=== PATIENT | male | born 2005 | race Two or more races ===

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

== ENCOUNTER 2024-06-10 08:16 | Emergency (ER) | payer OTHER, SELFPAY ==
--- NOTE | ~2024-06-10 | XR_ITS ---
EXAMINATION: XR WRIST 1-2 VIEWS RIGHT HISTORY: fall COMPARISON: There are no prior studies available for comparison. FINDINGS: Four views of the right wrist including a scaphoid view are submitted. Osseous mineralization is normal. There is no fracture or dislocation. The joint spaces are preserved. The soft tissues are unremarkable. XR/XR wrist RT 2V IMPRESSION: Unremarkable examination of the right wrist. Electronically signed by: Aniceto Saul MD 06/10/2024 08:39 AM EDT
[2024-06-10 08:18] VITALS: BP 129/88; PULSE 66; RESP 18; TEMP 36.4; O2SAT 99; BMI 22.6
--- NOTE | 2024-06-10 08:54 | PC.NURSE ---
Ice pack applied to R wrist; +CMS R hand/wrist; cap refill all digits R hand brisk; strong, palpable radial pulses; no deformity/swelling/ecchymosis noted
--- NOTE | 2024-06-10 09:16 | ED.EXTPRO ---
HPI - Extremity Problem General Chief complaint: Extremity Injury, Upper Stated complaint: R Wrist Injury 06/09/24 Time Seen by Provider: 06/10/24 08:36 Source: patient and family (dad) Mode of arrival: ambulatory Limitations: no limitations History of Present Illness ED Provider: YESI RASMUSSEN PA-C HPI Narrative: 18-year-old right hand dominant male with no significant pmhx presents to the ED today for evaluation of right wrist injury sustained during gymnastics practice last night. He reports falling over after attempting a dry cans back tender spring, causing him to land on his right wrist. Reports pain to the entire right wrist, primarily on movement. Denies any other injury. Denies elbow or shoulder pain. Denies numbness/tingling/weakness of the RUE. Related Data Previous Rx's ?Medication ?Instructions ?Recorded ibuprofen 600 mg tablet 600 mg PO Q8H PRN pain #10 tabs 12/12/20 ibuprofen 600 mg tablet 600 mg PO Q8H PRN pain (scale 06/10/24 score 1-3) #30 tabs Allergies Allergy/AdvReac Type Severity Reaction Status Date / Time No Known Allergies Allergy Verified 06/10/24 08:21 Review of Systems Review of Systems: Yes all other systems are reviewed and are negative [facility] Past Medical History Attestation statement: The following information was validated with the patient. Source: old records reviewed and nursing notes reviewed Medical History No known health problems Social History Social History Patient Tobacco Use Status: Never used Tobacco Smoked in Last 30 Days: No Use of substances other than those prescribed or required for medical reasons: No Advance Directives: No Advance Directives Information Provided: Yes Physical Exam Vital Signs: Vital Signs: Last Vital Signs Temp 97.6 F 06/10/24 08:18 Pulse 66 06/10/24 08:18 Resp 18 06/10/24 08:18 BP 129/88 06/10/24 08:18 Pulse Ox 99 06/10/24 08:18 O2 Del Method Room Air 06/10/24 08:18 BMI result Body Mass Index 22.6 vital signs stable, afebrile General: Well appearing, in no acute distress. Skin: Warm, dry, intact. No rashes or lesions. Head: Normocephalic, atraumatic. EENT: Hearing is intact b/l. Conjunctiva clear. PERRLA. EOM intact. Moist mucous membranes.? Cardiac: Chest wall symmetric. RRR Lungs: Normal respiratory effort without accessory muscle use Back: No midline spinous or paraspinal tenderness. No step off deformity. Ext: +no noted swelling, skin changes or deformity noted to right wrist. There is full ROM intact to right wrist with pain on flexion and extension. Sensation intact. Mild diffuse tenderness to palpation of right wrist. No snuffbox tenderness. No palpable deformity, crepitus, fluctuance. 2+ radial and ulnar pulse intact. no tenderness over right olecranon or right shoulder joint. FROM intact to right elbow/ shoulder. Neuro: AOx3. Normal speech. Ambulating with steady gait. Course Course Course Narrative: X-ray right hand/wrist without fracture or dislocation. Exam is quite benign. Will provide patient with a wrist splint. Medicated with Motrin in the ED. Advised NSAIDs for pain. Patient has remained stable throughout ED visit today. Discussed worrisome signs and symptoms and when to return to the ED. All questions answered at this time. Patient is agreeable with disposition and stable for discharge. Medical Decision Making Medical Decision Making MDM Narrative: 18-year-old right hand dominant male with no significant pmhx presents to the ED today for evaluation of right wrist injury sustained during gymnastics practice last night. Vital signs stable. Afebrile. He is nontoxic-appearing and in no acute distress. On exam of right upper extremity, there is no noted swelling, skin changes or deformity noted to right wrist. There is full ROM intact to right wrist with pain on flexion and extension. Sensation intact. Mild diffuse tenderness to palpation of right wrist. No snuffbox tenderness. No palpable deformity, crepitus, fluctuance. 2+ radial and ulnar pulse intact. no tenderness over right olecranon or right shoulder joint. FROM intact to right elbow/ shoulder. Differential diagnosis includes MSK sprain/strain, contusion, fracture, dislocation. Unlikely neurovascular compromise or threat to limb. Plan for x-rays, pain control and re-evaluation Differential Diagnosis Differential Diagnoses: The differential diagnosis associated with the presentation includes As above Admission/Observation Not indicated Independent Interpretation I performed an independent interpretation of an: Plain X-Ray Interpretation: X-ray right hand/wrist without fracture Radiology Impression Discussion of test interpretation with radiology: I have reviewed the radiologist's reading. Radiologist Impression: Procedure(s): XR wrist RT 2V Accession Number(s): [id number] cc: Tad Sr MD; Physician,Unknown ~ EXAMINATION: XR WRIST 1-2 VIEWS RIGHT HISTORY: fall COMPARISON: There are no prior studies available for comparison. FINDINGS: Four views of the right wrist including a scaphoid view are submitted. Osseous mineralization is normal. There is no fracture or dislocation. The joint spaces are preserved. The soft tissues are unremarkable. XR/XR wrist RT 2V IMPRESSION: Unremarkable examination of the right wrist. Electronically signed by: Aniceto Saul MD 06/10/2024 08:39 AM EDT RP Independent Historian Clinical information obtained from an independent historian. History obtained from or confirmed by: Parent (dad) Prescription Management I considered prescription management with: Pain Medication Social Determinants Patient?s care significantly limited by Social Determinants of Health including: Other Social Determinant of Health Procedures Orthopedic Splinting/Casting Injury #1: Side: right Upper Extremity Injury Location: wrist Upper Extremity Immobilizer: wrist splint Critical Care Time Critical Care Time Critical Care Time: No Discharge Plan Discharge Clinical Impression: Right wrist sprain Patient Disposition: Home, Self-Care Instructions: Wrist Sprain (ED) Additional Instructions: You were evaluated in the ED today for a right wrist injury. The x-ray of your right wrist does not demonstrate any fracture. You likely sprained your wrist. You have been provided with a wrist brace for comfort. I recommend wearing this at night while sleeping. I recommend NSAIDs such as Motrin to help with pain and swelling. Please follow up with your primary care doctor as needed. If pain continues, I recommend you follow up with an talent sourcing specialist. You have been provided with a referral. Call them to establish care. They will not call you. Return with any new or worsening symptoms. In the case of an emergency call 911. Prescriptions: New ibuprofen 600 mg tablet 600 mg PO Q8H PRN (Reason: pain (scale score 1-3)) Qty: 30 0RF No Action ibuprofen 600 mg tablet 600 mg PO Q8H PRN (Reason: pain) Qty: 10 0RF Referrals: [facility] [place] [facility] [Provider Group] Physician,Unknown J [Primary Care Provider] - Stand Alone Forms: Work/School Release Print Language: Japanese
[2024-06-10] MEDS: Ibuprofen 600 MG TABLET PO (10:13)
[2024-06-10 10:32] VITALS: BP 129/88; PULSE 66; RESP 18; TEMP 36.4; O2SAT 99
== END 2024-06-10 10:32 | disposition home or self-care (01) ==
PROVIDERS: Emergency Provider Emergency Medicine
DX: S63.501A Unspecified sprain of right wrist, initial encounter (principal); X50.1XXA Overexertion from prolonged static or awkward postures, initial encounter; X50.3XXA Overexertion from repetitive movements, initial encounter; M25.531 Pain in right wrist; Y93.43 Activity, gymnastics; Y93.9 Activity, unspecified; Y92.39 Other specified sports and athletic area as the place of occurrence of the external cause; Y99.8 Other external cause status
CPT/HCPCS: 29125; 73100; 99283; 99284

== ENCOUNTER → 2024-06-10 08:20 | Outpatient (BNV) | payer OTHER, SELFPAY | PROVIDERS: Emergency Provider Emergency Medicine; Visit Provider Radiology Diagnostic Radiology | DX: S63.501A Unspecified sprain of right wrist, initial encounter (principal); W19.XXXA Unspecified fall, initial encounter | CPT/HCPCS: 73100 ==

== ENCOUNTER 2024-06-29 09:23 | Outpatient (REF) | payer OTHER, SELFPAY ==
--- NOTE | ~2024-06-29 | XR_ITS ---
CLINICAL HISTORY: M25.531 - Pain in right wrist 3 view right wrist Comparison: None Findings: Bones intact. No dislocations. No significant arthritic change or erosions. No radiopaque foreign body. IMPRESSION: 1. No acute findings This document has been electronically signed by: Wesley Whyte MD on 07/02/2024 08:48:29
== END 2024-06-29 09:24 | disposition home or self-care (01) ==
LOC: HO.HOSX 09:23
DX: Z09 Encounter for follow-up examination after completed treatment for conditions other than malignant neoplasm (principal); M25.531 Pain in right wrist; S63.501A Unspecified sprain of right wrist, initial encounter; W01.10XA Fall on same level from slipping, tripping and stumbling with subsequent striking against unspecified object, initial encounter; Y93.39 Activity, other involving climbing, rappelling and jumping off; Y92.9 Unspecified place or not applicable; Y99.8 Other external cause status
CPT/HCPCS: 73110; 99202

== ENCOUNTER 2024-06-29 15:00 | Outpatient (AMB) | payer SELFPAY ==
--- NOTE | 2024-06-29 15:19 | MHC.OFFVIS ---
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 He reports falling over after attempting a front tuck and then back flip, causing him to land on his right wrist. He expresses at first he had no pains however during the night when he got cold he noticed pain that started on the dorsal aspect of the right hand and radiated into the wrist. Reports an increase in pain with flexion and extension. He has not tried to heavy lift with his brace on. Patient reports ibuprofen did alleviate him but did not remove pain completely. He has since completed his script. Bacon Stringer Required: Yes Bacon Stringer Language: Chinese Accompanied by: Father Allergies No Known Allergies Allergy (Verified 06/29/24 15:27) HPI HPI EDUCATIONAL TECHNOLOGY COORDINATOR- Right wrist sprain: Details: Gordo is a 18 year old right hand dominant male who presents today with dad as a new patient for an emergency department follow up for his right wrist, DOI: 06/09/24. He reports falling over after attempting a front tuck and then back flip, causing him to land on his right wrist. He expresses at first he had no pains however during the night when he got cold he noticed pain that started on the dorsal aspect of the right hand and radiated into the wrist. Reports an increase in pain with flexion and extension. He has not tried to heavy lift with his brace on. Patient reports ibuprofen did alleviate him but did not remove pain completely. He has since completed his script. Patient does state that he is planning on going to [place] to train in martial arts, and would like to know the timeframe for which this would be appropriate. [facility] Medical History No known health problems Social History (Updated 06/29/24 @ 15:28 by GEORGE Garland) Patient Tobacco Use Status: Never used Tobacco Current occupational status: student Current occupation: right handed Review of Systems Const All systems reviewed & are unremarkable except as noted in HPI and below Physical Exam Vital Signs: BMI result Body Mass Index 22.4 Extrem Other: Patient is alert, oriented, and in no acute distress. Neuro: Normal sensation of the tips of all digits of the right hand at this time Vascular: Cap refill brisk Pain: No tenderness to palpation about the radial styloid, ulnar styloid, anatomical snuffbox, dorsal or volar aspects, or in the distal radial or ulnar shaft of the right wrist Minimal discomfort on the dorsal right wrist with both flexion and extension ROM: Patient was able to make a closed fist and extend all digits of the right hand fully Patient is able to flex and extend the right wrist to approximately 90 degrees, reports mild discomfort when doing so Skin: No lacerations or abrasions. General: No ecchymosis, erythema, or evidence of infection. Psych: Appears grossly normal Affect normal Attitude cooperative Results Reviewed Results Reviewed: X-rays obtained in the office today and independently reviewed by me, Dajuan Berry PA-C, demonstrate no fracture or acute bony abnormality of the right wrist. Assessment & Plan Assessment & Plan (1) Right wrist sprain: Code(s): S63.501A - Unspecified sprain of right wrist, initial encounter Category: Medical Plan 1. Sprain of right wrist Date of injury 06/09/2024 Patient is educated about this injury Patient is educated about the typical recovery course At this time, patient was provided with a Velcro wrist splint to wear when his wrist is bothering him Patient was advised to remove the splint while at rest to work on range of motion and gentle strengthening of the right wrist Patient was advised that he should take at least 2 weeks off from martial arts to allow the tendons and soft tissue structures of his right wrist to heal Patient was amenable to this plan Follow-up in 2 weeks, anticipate clearance for return to activities at that time, sooner with any acute concerns Orders: Orders XR wrist RT min 3V 06/29/24 M25.531 - Pain in right wrist Medications: Discontinued ibuprofen Discontinued Reason: Patient no longer taking 600 mg PO Q8H PRN 10 tabs 0RF pain ibuprofen Discontinued Reason: Patient Completed Course 600 mg PO Q8H PRN 30 tabs 0RF pain (scale score 1-3) Coding Level of Care Code New Pt Level 3 (90540) Diagnoses Right wrist sprain S63.501A
[2024-06-29 15:27] VITALS: BMI 22.4
== END 2024-06-29 15:45 | disposition home or self-care (01) ==
LOC: HO.HOS 15:00
DX: S63.501A Unspecified sprain of right wrist, initial encounter (principal)
CPT/HCPCS: 99203

== ENCOUNTER → 2024-06-29 15:18 | Outpatient (BNV) | payer SELFPAY | PROVIDERS: Visit Provider Radiology Vascular & Interventional Radiology | DX: M25.531 Pain in right wrist (principal) | CPT/HCPCS: 73110 ==

== ENCOUNTER 2024-07-12 13:45 | Outpatient (AMB) | payer OTHER, SELFPAY ==
--- NOTE | 2024-07-12 13:48 | A.OFFVIS_ITS ---
Intake Visit Reasons: OV- Right wrist sprain Intake Note: Gordo is a 18 year old right hand dominant male who presents today with dad for a follow up of his sprain of right wrist DOI: 06/09/24. At his last visit he was placed in a Velcro wrist splint. He has refrained from martial arts for a week and a half and reports working on range of motion and gentle strengthening of the right wrist while at rest. He expresses the only time he is experiencing pain and discomfort is when he applies pressure to the right palm with activities that involves pushing such as push ups. Reports he has tried ibuprofen and turmeric supplements and states he was provided with adequate relief. Regional Tanker Truck Driver Required: Yes Regional Tanker Truck Driver Language: Uzbek Allergies No Known Allergies Allergy (Verified 07/12/24 13:56) HPI HPI OV- Right wrist sprain: Details: Gordo is a 18 year old right hand dominant male who presents today with dad for a follow up of his sprain of right wrist DOI: 06/09/24. At his last visit he was placed in a Velcro wrist splint. He has refrained from martial arts for a week and a half and reports working on range of motion and gentle strengthening of t he right wrist while at rest. He expresses the only time he is experiencing pain and discomfort is when he applies pressure to the right palm with activities that involves pushing such as push ups. Reports he has tried ibuprofen and turmeric supplements and states he was provided with adequate relief. [facility] Medical History No known health problems Social History Patient Tobacco Use Status: Never used Tobacco Current occupational status: student Current occupation: right handed Review of Systems Const All systems reviewed & are unremarkable except as noted in HPI and below Physical Exam Extrem Other: Patient is alert, oriented, and in no acute distress. Neuro: Normal sensation of the tips of all digits of the right hand at this time Vascular: Cap refill brisk Pain: No tenderness to palpation about the radial styloid, ulnar styloid, anatomical snuffbox, dorsal or volar aspects, or in the distal radial or ulnar shaft of the right wrist No further discomfort on the dorsal right wrist with both flexion and extension ROM: Patient was able to make a closed fist and extend all digits of the right hand fully Patient is able to flex and extend the right wrist to approximately 90 degrees, reports no discomfort when doing so Skin: No lacerations or abrasions. General: No ecchymosis, erythema, or evidence of infection. Psych: Appears grossly normal Affect normal Attitude cooperative Assessment & Plan Assessment & Plan (1) Right wrist sprain: Code(s): S63.501A - Unspecified sprain of right wrist, initial encounter Category: Medical Plan 1. Sprain of right wrist Date of injury 06/09/2024 Patient is educated about this injury Patient is educated about the typical recovery course At this time, patient was provided with a Velcro wrist splint to wear when his wrist is bothering him Patient was advised to remove the splint while at rest to work on range of motion and gentle strengthening of the right wrist Patient was advised that he should t gradually return to full normal activity, and then I do not feel it was advisable for him to participate in martial arts tournaments for at least a further 3-4 weeks, rather gradually increasing to normal activity Patient was amenable to this plan Follow-up as needed Coding Level of Care Code Est Pt Level 3 (42255) Diagnoses Right wrist sprain S63.501A
== END 2024-07-12 14:17 | disposition home or self-care (01) ==
DX: S63.501A Unspecified sprain of right wrist, initial encounter (principal)
CPT/HCPCS: 99213

== ENCOUNTER → 2024-07-12 13:45 | Outpatient (BNVA) | payer OTHER, SELFPAY | DX: S63.501D Unspecified sprain of right wrist, subsequent encounter (principal); X58.XXXD Exposure to other specified factors, subsequent encounter | CPT/HCPCS: 99212 ==